=== PATIENT | male | born 1995 | race Caucasian/White ===

== ENCOUNTER 2017-04-03 21:56 | Emergency (ER) | payer BC ==
--- NOTE | 2017-04-03 22:20 | EDPHY ---
H & P Stated Complaint: Poss broken/sprained R ankle. Time Seen by Provider: 04/03/17 22:12 HPI/ROS: Chief Complaint: Ankle injury HPI: 21-year-old male was playing interval your basketball. He went for rebounding came down and inverted his right ankle. He continued to place to the game with significant pain. He has injured this ankle before with severe strain but is not have a history of fractures. No other injuries at this time. No numbness or weakness. ROS: 10 point Review of Systems is negative except as noted in the HPI. PMH: Denies Social History: [No] smoking, [no] alcohol, [ no recreational drug use] Family History: [non-contributory] Physical Exam: General: Awake, alert, no acute distress Right lower extremity: Right knee, no tenderness, full range of motion without pain Right ankle: He has got tenderness over the anterior talofibular ligament. No medial or lateral malleolar tenderness. No significant edema. Right foot: He has mild midfoot tenderness. No calcaneal tenderness. Normal DP and PT pulses. Capillary refills less than 2 sec. Sensations intact in all dermatomes. Skin: No rash - Personal History Current Tetanus/Diphtheria Vaccine: Yes Current Tetanus Diphtheria and Acellular Pertussis (TDAP): Yes - Medical/Surgical History Hx Asthma: No Hx Chronic Respiratory Disease: No Hx Diabetes: No Hx Cardiac Disease: No Hx Renal Disease: No Hx Cirrhosis: No Hx Alcoholism: No Hx HIV/AIDS: No Other PMH: Denies - Social History Smoking Status: Current some day smoker Constitutional: Initial Vital Signs Temperature (C) 37.3 C 04/03/17 22:03 Heart Rate 97 04/03/17 22:03 Respiratory Rate 17 04/03/17 22:03 Blood Pressure 123/86 H 04/03/17 22:03 O2 Sat (%) 97 04/03/17 22:03 O2 Delivery Mode Room Air Allergies/Adverse Reactions: amoxicillin Allergy (Verified 04/03/17 22:08) Home Medications: Medication Instructions Recorded Adderall 10 mg Tablet 04/03/17 Medical Decision Making - Diagnostics Imaging Results: Imaging Impressions Ankle X-Ray 04/03/17 22:15 Impression: Probably old avulsion fragments distal to the medial and lateral malleoli, with some mild dorsal soft tissue swelling. Correlation with prior studies would be helpful to assess for more specific interval change. RIGHT FOOT (3 Views, at 10:22 PM): Bone mineralization is preserved. There is no acute fracture or dislocation identified. There is an unfused os tibiale externum along the medial midfoot. The tarsometatarsal alignment is anatomic. There is a bipartite medial great toe sesamoid bone. Impression: There is no acute osseous abnormality identified. Foot X-Ray 04/03/17 22:15 Impression: Probably old avulsion fragments distal to the medial and lateral malleoli, with some mild dorsal soft tissue swelling. Correlation with prior studies would be helpful to assess for more specific interval change. RIGHT FOOT (3 Views, at 10:22 PM): Bone mineralization is preserved. There is no acute fracture or dislocation identified. There is an unfused os tibiale externum along the medial midfoot. The tarsometatarsal alignment is anatomic. There is a bipartite medial great toe sesamoid bone. Impression: There is no acute osseous abnormality identified. Imaging: I viewed and interpreted images myself ED Course/Re-evaluation: 21-year-old male with ankle injury, no acute bony injury. Will place in a Velcro stirrup splint. Follow up with [facility] as needed. Departure - Departure Disposition: Home, Routine, Self-Care Clinical Impression: Ankle sprain Condition: Good Instructions: Ankle Sprain (ED), Crutch Instructions (ED), Ankle Stirrup Splint (ED), R.I.C.E. Treatment (ED), Ice Pack Application (ED) Additional Instructions: Alternate acetaminophen (1000 mg) with ibuprofen (400 mg) every 4 hours as needed for pain. Follow up with [facility] in 3-4 days for further evaluation. You may follow up with Orthopedics if you're still having symptoms in about a week. Referrals: HEATHER AGUILAR ,. [Clinic] - As per Instructions Vel Hyman MD [Medical Doctor] - As per Instructions
[2017-04-03 23:15] VITALS: BP 135/86; PULSE 78; RESP 18; TEMP 98.1; O2SAT 98
== END 2017-04-03 23:18 | disposition home or self-care (01) ==
DX: S93.401A Sprain of unspecified ligament of right ankle, initial encounter (principal); F17.200 Nicotine dependence, unspecified, uncomplicated; X50.9XXA Other and unspecified overexertion or strenuous movements or postures, initial encounter; Y99.8 Other external cause status; Y93.67 Activity, basketball
CPT/HCPCS: L4350